=== PATIENT | female | born 1995 | race American Indian/Alaskan Native ===

== ENCOUNTER 2017-09-21 20:04 | Emergency (ER) | payer SELFPAY ==
[2017-09-21 20:42] VITALS: BP 110/73
== END 2017-09-21 22:00 | disposition left against medical advice (07) ==
LOC: ED 20:04
DX: R07.9 Chest pain, unspecified (principal); Z53.21 Procedure and treatment not carried out due to patient leaving prior to being seen by health care provider
CPT/HCPCS: 93005; 93010

== ENCOUNTER 2018-03-09 14:10 | Emergency (ER) | payer OTHER ==
[2018-03-09 14:51] VITALS: BP 113/68
[2018-03-09] MEDS ORDERED: MOTRIN PO ONE (16:22)
[2018-03-09] MEDS ORDERED: FLEXERIL PO ONE (16:22)
--- NOTE | 2018-03-09 16:23 | Emergency Department Report ---
ED Back Pain/Injury HPI - General Chief Complaint: Back Pain/Injury Stated Complaint: LOWER BACK PAINS Time Seen by Provider: 03/09/18 16:12 Source: patient, family Limitations: No Limitations - History of Present Illness Initial Comments: This is a 22-year-old female here report that she injured her back 2 days ago a work by lifting heavy object. She says she is having lower back pain on both sides of her back and her boss told her to come to the hospital to get checked out before she comes back to work. Patient says she was moving furniture up and down. She says she woke up on Tuesday morning and was feeling stiff and achy. Denies any loss of bowel or bladder function. Denies any fever or chills. Denies any urinary symptoms. Pain is 6 out of 10 and achy. Pain is worse with movement better with rest. [id number] pain medication did not help. MD Complaint: back pain Onset/Timin -: days(s), This morning Similar Symptoms Previously: Yes Place: work Radiation: none Severity: moderate Severity scale (0 -10): 6 Quality: aching Consistency: constant Improves With: immobilization Worsens With: movement, walking Context: while lifting Associated Symptoms: denies: confusion, weakness, chest pain, numbness, difficulty walking, cough, difficulty urinating, diaphoresis, incontinence, fever/chills, constipation, headaches, abdominal pain, loss of appetite, malaise , nausea/vomiting, rash, seizure, shortness of breath, syncope Treatments Prior to Arrival: other medications - Related Data Previous Rx's Medication Instructions Recorded Last Taken Type Cyclobenzaprine [Flexeril] 10 mg PO TID PRN #12 tablet 03/09/18 Unknown Rx Ibuprofen [Motrin] 600 mg PO Q8H PRN #15 tablet 03/09/18 Unknown Rx Allergies Allergy/AdvReac Type Severity Reaction Status Date / Time acetaminophen [From Tylenol] Allergy Hives Verified 08/10/14 14:02 diphenhydramine HCl Allergy Hives Verified 08/10/14 14:02 [From Benadryl] liquid medicine Allergy Hives Uncoded 08/10/14 14:02 ED Review of Systems ROS: Stated complaint: LOWER BACK PAINS Other details as noted in HPI Constitutional: denies: chills, fever Eyes: denies: eye pain, vision change ENT: denies: throat pain Respiratory: denies: cough, orthopnea, shortness of breath, SOB with exertion, SOB at rest, stridor, wheezing Cardiovascular: denies: chest pain, palpitations, dyspnea on exertion, edema, syncope, paroxysmal nocturnal dyspnea Gastrointestinal: denies: abdominal pain, nausea, diarrhea Genitourinary: denies: urgency, dysuria, frequency, hematuria, discharge Musculoskeletal: back pain. denies: joint swelling, arthralgia, myalgia Skin: denies: rash, lesions Neurological: denies: headache, weakness, numbness, paresthesias, confusion, abnormal gait, vertigo ED Past Medical Hx - Past Medical History Medical history: asthma Anxiety Surgical history: no surgical history Psychiatric history: no pertinent history BUNCHER MACHINE history: no BUNCHER MACHINE history LMP comments: other (08/22/2017) Family history: asthma, hypertension - Social History Smoking Status: Current Every Day Smoker Alcohol use: none Drug use: none ED Back Pain Physical Exam - Exam General: Vital signs noted. No distress. Alert and acting appropriately. This is a 22-year-old female well-nourished well-developed in no acute distress and nontoxic in appearance. EXT: no clubbing, cyanosis or edema. +2 pulses to all extremities and no neurovascular compromise Lungs: Clear to auscultation bilaterally, no rhonchi wheezes or rales Back: No CVA tenderness Psych: Normal mood and behavior Back/Abdomen: No Abdominal Tenderness (nontender to palpate in all quadrants and normal bowel sounds), No Perithoracic Tenderness (no vertebral tenderness), No Perilumbar Tenderness (no vertebral tenderness but bilateral lower lumbar spasms), No Sacroiliac Tenderness, No Flank Tenderness (no CVA tenderness), No Straight Leg Raise Pain Neuro: Yes Normal Sensation, Yes Normal DTR's, Yes Normal Gait, No Motor Weakness ED Course Vital Signs 03/09/18 14:48 Temperature 98.6 F Pulse Rate 74 Respiratory 18 Rate Blood Pressure 113/68 O2 Sat by Pulse 99 Oximetry - Reevaluation(s) Reevaluation #1: 03/09/18 16:33 Patient given Motrin 800 mg by mouth and Flexeril 10 mg. Emergency room for lower back pain. Reevaluation #2: 03/09/18 16:48 Patient reports that she is feeling better after medication and discharged home with her family in stable condition. ED Medical Decision Making - Medical Decision Making ED course: This is a 22-year-old female here to be examined after injuring her back at work. She has bilateral lumbar spasm and bilateral lumbar strain after lifting heavy object. She is here to be evaluated. I saw and examined patient and she was found to have bilateral lumbar strain and spasm.Patient has no vertebral tenderness and no loss of motor or sensory function. She is neurologically intact. There are no need for further testing. I discussed diagnosis with patient and she voiced understanding. Pain management with Motrin and Flexeril. A/P 1: Lumbar strain-better with 800 mg of Motrin and 10 mg of Flexeril and was sent home on Flexeril and Motrin 2: Lumbar muscle spasm: Better with pain medication 3:Lower Back pain-better on pain medication Patient given educational medication, treatment plan, needs follow-up with orthopedic if pain continues. She voiced understanding. Referral to orthopedic doctor Patient discharged home with family members with prescription for Motrin and Flexeril and to rest over the next 3 days and she can return to work on 03/13/2018. Given instructions on core strength exercises and back ergonomics. Her vital signs are stable she is afebrile and she is nontoxic in appearance. Discharged from ED in stable condition and voices understanding of discharge information. Critical care attestation.: If time is entered above; I have spent that time in minutes in the direct care of this critically ill patient, excluding procedure time. ED Disposition Clinical Impression: Spasm of muscle, back Low back strain Qualifiers: Encounter type: initial encounter Qualified Code(s): S39.012A - Strain of muscle, fascia and tendon of lower back, initial encounter Lower back pain Qualifiers: Chronicity: acute Back pain laterality: bilateral Sciatica presence: without sciatica Qualified Code(s): M54.5 - Low back pain Disposition: TO HOME OR SELFCARE Is pt being admited?: No Does the pt Need Aspirin: No Condition: Stable Instructions: Muscle Spasm (ED), Low Back Strain (ED), Back Pain (ED) Additional Instructions: Please follow up with orthopedic doctor as instructed If his symptoms worsen, return to the emergency room Take Motrin and Flexeril for pain but please do not drive or operate heavy machinery while taking i Flexeril as this medication causes drowsiness Prescriptions: Cyclobenzaprine [Flexeril] 10 mg PO TID PRN #12 tablet PRN Reason: Muscle Spasm Ibuprofen [Motrin] 600 mg PO Q8H PRN #15 tablet PRN Reason: Pain Referrals: PRIMARY CAREMD [Primary Care Provider] - 03/10/18 JESSICA CUNNINGHAM MD [Staff Physician] - 3-5 Days [facility] [Outside] - 03/10/18 Forms: Work/School Release Form(ED)
== END 2018-03-09 16:53 | disposition home or self-care (01) ==
LOC: ED 14:10
DX: S39.012A Strain of muscle, fascia and tendon of lower back, initial encounter (principal); J45.909 Unspecified asthma, uncomplicated; F17.200 Nicotine dependence, unspecified, uncomplicated; X50.0XXA Overexertion from strenuous movement or load, initial encounter; Y93.89 Activity, other specified; Y92.89 Other specified places as the place of occurrence of the external cause; Y99.8 Other external cause status
CPT/HCPCS: 99282